=== PATIENT | female | born 1965 | race African-American/Black ===

== ENCOUNTER 2017-01-03 21:00 | Inpatient (IN) | payer OTHER ==
[~2017-01-03] VITALS: Ht 175.3 cm; Wt 63.5 kg
--- NOTE | 2017-01-03 21:04 | ED PSYCHIATRIC COMPLAINT ---
History of Present Illness General Chief Complaint: Psychiatric Related Complaint Stated Complaint: BIBA FOR [facility] ON [address] Source: patient, EMS, police Exam Limitations: clinical condition Vital Signs & Intake/Output Vital Signs & Intake/Output Vital Signs Date Time Temp Pulse Resp B/P B/P Pulse O2 O2 Flow FiO2 Mean Ox Delivery Rate 01/04 0901 97.6 60 18 151/71 100 Room Air 01/04 0644 98.2 71 16 144/79 100 Room Air 01/04 0309 97.7 77 17 154/85 99 Room Air 01/03 2259 97.5 70 18 161/88 99 Room Air 01/03 2126 100 01/03 2101 97.3 93 18 169/90 100 Room Air Allergies Coded Allergies: morphine (Severe, PT STS NEEDED AN INJECTIONS TO CANCEL THE MORPHINE 01/03/17) shellfish derived (Severe, ANAPHALACTIC SHOCK 01/03/17) latex (Mild, RASH 01/03/17) Reconcile Medications No Known Home Medications Triage Nurses Notes Reviewed? yes Onset: Abrupt Duration: hour(s): (1), constant, continues in ED Timing: single episode today Severity: moderate, severe Associated Symptoms: anxiety, suicidal ideation, aggresive behavior LMP (ages 10-50): post menopausal : No Patient currently breastfeeds: No HPI: 51-year-old female with unknown past medical history brought in by EMS and police after she was found walking [place] the [place] [address] earlier tonight. Police reports that they arrived on scene to find her walking down [address] When they tried to confront her to find out what she was doing she immediately became very hostile yelling and screaming at them. She repeatedly asked them to shoot her and throw her body off the side of the road. Please also reports she was talking in incomprehensible words. [place] police report that patient has been arrested for previously cutting off the [facility] wasn't leaving them in [facility] lots. Patient currently reports that she was out walking for exercise only. She denies any current suicidal ideation, homicidal ideation pain drug use or any associated symptoms. She denies any psych history. Patient is very upset that she has to be in the hospital repeatedly saying nothing is wrong with her. Patient is very hostile during interview. (BHARGAV MAYER PA-C) Past History Medical History Any Pertinent Medical History? see below for history Surgical History Surgical History: none Family History Hx Contributory? No (BHARGAV MAYER PA-C) Review of Systems Review of Systems Constitutional: Reports: no symptoms. EENTM: Reports: no symptoms. Respiratory: Reports: no symptoms. Cardiovascular: Reports: no symptoms. GI: Reports: no symptoms. Genitourinary: Reports: no symptoms. Musculoskeletal: Reports: no symptoms. Skin: Reports: no symptoms. Neurological/Psychological: Reports: see HPI. Hematologic/Endocrine: Reports: no symptoms. Immunologic/Allergic: Reports: no symptoms. All Other Systems: Reviewed and Negative (BHARGAV MAYER PA-C) Physical Exam Physical Exam General Appearance: well developed/nourished, alert, awake, anxious, moderate distress Head: atraumatic, normal appearance Eyes: Bilateral: normal appearance, PERRL, EOMI. Ears, Nose, Throat: normal pharynx, normal ENT inspection, hearing grossly normal Neck: normal inspection, supple, full range of motion Respiratory: normal breath sounds, chest non-tender, no respiratory distress, lungs clear Cardiovascular: regular rate/rhythm, normal peripheral pulses Gastrointestinal: normal bowel sounds, soft, non-tender, no organomegaly Extremities: normal range of motion Neurological/Psychiatric: no motor/sensory deficits, awake, agitated, alert, anxious Appearance/Memory/Insight: appropriate appearance, denies illness, impaired insight Behavoir/Eye Contact/Speech: avoids eye contact, belligerent, uncooperative, increased rate of speech, refused to answer Thoughts/Hallucinations: normal thought pattern, delusions, incoherent, paranoid , persecution Skin: intact, normal color, warm/dry SAD PERSONS Done? patient not suicidal (BHARGAV MAYER PA-C) Progress Differential Diagnosis: dementia, drug intoxication, drug overdose, drug withdrawal, electrolyte abnormality, encephalitis, hypoglycemia, hypothyroidism, IC hem/mass/tumor, meningitis Plan of Care: Orders Procedure Date/time Status Regular Diet 01/04 B Active Admit to inpatient psych 01/04 0936 Active Continuous Observation Monitor 01/04 0731 Active Restraint- Discontinue 01/04 0140 Active Restraint- Behavioral (Order) 01/04 0038 Active Add-on Test (ER Only) 01/03 2258 Active THYROID STIMULATING HORMONE 01/04 2140 Complete FREE T4 01/04 2140 Complete Continuous Observation Monitor 01/03 2121 Active URINE 01/03 2121 Complete URINE DRUG SCREEN FOR ER ONLY 01/03 2121 Complete URINALYSIS 01/03 2121 Complete ETHANOL 01/03 2121 Complete COMPREHENSIVE METABOLIC PANEL 01/03 2121 Complete CBC WITHOUT DIFFERENTIAL 01/03 2121 Complete ED CRISIS PSYCH CONSULT 01/03 2121 Active Laboratory Tests 01/03/17 2324: Urine Opiates Screen < 100.00, Methadone Screen < 40, Barbiturate Screen < 60, Ur Phencyclidine Scrn < 6.00, Amphetamines Screen < 100, U Benzodiazepines Scrn < 85, Urine Cocaine Screen < 50, Urine Cannabis Screen < 5.00, Urinalysis MOD H , Urine Color YEL, Urine Clarity HAZY H, Urine pH 7.5, Ur Specific [place] 1.015, Urine Protein 30 H, Urine Ketones NEG, Urine Nitrite NEG, Urine Bilirubin NEG, Urine Urobilinogen 2.0 H, Ur Leukocyte Esterase TRACE H, Ur Microscopic SEDIMENT EXAMINED, Urine WBC 3-5 H, Ur Epithelial Cells FEW, Urine Bacteria MOD H, Urine Mucus FEW, Urine Hemoglobin NEG, Urine Glucose NEG, Urine Test NEGATIVE 01/03/172139: Anion Gap 14, Estimated GFR > 60, BUN/Creatinine Ratio 21.1, Glucose 111 H, Calcium 9.7, Total Bilirubin 1.5 H, AST 25, ALT 24, Alkaline Phosphatase 52, Total Protein 7.9, Albumin 4.7, Globulin 3.2, Albumin/Globulin Ratio 1.5, TSH 4.900 H, Free T4 1.38, CBC w Diff NO MAN DIFF REQ, RBC 4.59, MCV 76.0 L, MCH 24.1 L, RDW 15.4 H, MPV 8.6, Gran % 70.1, Lymphocytes % 23.0, Monocytes % 6.1, Eosinophils % 0.6, Basophils % 0.2, Absolute Granulocytes 3.9, Absolute Lymphocytes 1.3, Absolute Monocytes 0.3, Absolute Eosinophils 0, Absolute Basophils 0, PUBS MCHC 31.6 L, Serum Alcohol < 10.0 Patient requires clearance by crisis. She will have basic blood work and be cleared medically and then will see crisis in the morning. 12:25 AM patient is becoming increasingly agitated and aggressive towards staff. She'll be given 10 of Haldol 2 of Ativan and 50 of Benadryl IM and placed in restraints. Blood work and urinalysis are within normal limits. Alcohol is negative. Urine drug screen is pending. 1 AM: Patient signed out to Dr. Ortiz pending crisis eval in the morning. (BHARGAV MAYER PA-C) Hand-Off Endorsed To: CORINA ORTIZ MD Endorsed Time: 0104 Pending: consult (crisis) (BHARGAV MAYER PA-C) Hand-Off Endorsed To: SPENCER ROWELL MD Endorsed Time: 0700 Pending: consult (CORINA ORTIZ MD) Departure Departure Disposition: STILL A PATIENT Condition: Stable Clinical Impression Primary Impression: Aggressive behavior Departure Forms: Customer Survey General Discharge Information Prescriptions: Current Visit Scripts No Known Home Medications (BHARGAV MAYER PA-C) Departure Comments 01/04/17, 3:35am... pt became increasingly agitated, threatening to staff, aggressive. Pt placed in restraints. Pt given haldol 10mg im and ativan 2mg im. Pt now resting comfortably, out of restraints. Pt to be evaluated by shell this morning. 01/04/17, 7am... pt signed out to dr. rowell this morning. PA/CORK TIPPER Co-Sign Statement Statement: ED Attending supervision documentation- [x] I saw and evaluated the patient. I have also reviewed all the pertinent lab results and diagnostic results. I agree with the findings and the plan of care as documented in the PA's/CORK TIPPER's documentation. [] I have reviewed the ED Record and agree with the PA's/CORK TIPPER's documentation. [] Additions or exceptions (if any) to the PAs/CORK TIPPER's note and plan are summarized below: [] (CORINA ORTIZ MD) Psych Admission Note Psychiatric Admission: I have seen and evaluated PANCHO LEVIN. I have also reviewed all the pertinent lab results and diagnostic results. PANCHO LEVIN will be admitted to our inpatient Psychiatric unit for treatment and care. (SORIN GUSTAFSON,SPENCER Arita)
--- NOTE | 2017-01-03 21:24 | NUR ---
BIBA ON PEER AFTER POLICE FOUND PT WANDERING ON THE SIDE OF THE HIGHWAY SCREAMING. PT TOLD EMS SHE HAD BEEN BODY-SCANNED. ARRIVED ALERT, ABLE TO FOLLOW INSTRUCTIONS, WITH SOME OBVIOUS PARANOID DELUSIONS BUT ALSO RESPONDING APPROPRIATLY TO SOME QUESTIONS, NO PHYSICAL NEURO DEFECITS. REFUSES TO PROVIDE MOST INFO.
--- NOTE | 2017-01-03 21:24 | NUR ---
SECURITY AT BEDSIDE ON ARRIVAL FOR ASSIST. PT WALKED FROM EMS TO ER STRETCHER, WANDED BY SECURITY, COOPERATIVE BUT YELLING "I AM NOT A BOMBER, GO FIND ALL THE BOMBERS, BUT I AM NOT A BOMBER." CHANGED INTO GOWN (REFUSED BLUE SCRUBS "I DON'T WEAR PANTS, I NEED A NIGHTGOWN." REFUSES TO PROVIDE URINE NOW "WHEN I AM READY TO GO I WILL GO." SITTER PRESENT AT BEDSIDE AT ALL TIMES FOR SAFETY. SOPHIE MAYER IN TO EVAL. PD ATTEMPTING TO VERIFY PT'S IDENTITY.
--- NOTE | 2017-01-03 21:25 | NUR ---
1 BELONGINGS BAG IN CLOSET. PD CURRENTLY HAS PT'S KEYS (ONLY VALUABLES PER PD) AND ALSO HAS THE PEER IT IS INCOMPLETE WITHOUT PT'S NAME ETC.
--- NOTE | 2017-01-03 21:46 | NUR ---
LABS DRAWN AND SENT AND PT STS NOT ABLE TO VOID AT PRESENT
[2017-01-03 21:49] LABS: ABSOLUTE BASOPHIL COUNT 0 /CUMM (0.0-0.2); ABSOLUTE EOSINOPHIL COUNT 0 /CUMM (0.0-0.7); ABSOLUTE GRANULOCYTE CT 3.9 /CUMM (1.4-6.5); ABSOLUTE LYMPH COUNT 1.3 /CUMM (1.2-3.4); ABSOLUTE MONOCYTE COUNT 0.3 /CUMM (0.10-0.60); BASOPHIL % 0.2 % (0.0-2.0); EOSINOPHIL % 0.6 % (0-5); GRANULOCYTE % 70.1 % (42.2-75.2); HEMATOCRIT 34.9 % (37-47); MEAN CORPUSCULAR HGB 24.1 PG (27.0-31.0); MEAN CORPUSCULAR HGB CONC 31.6 G/DL (33.0-37.0); MEAN PLATELET VOLUME 8.6 FL (7.4-10.4); PLATELET COUNT 304 /CUMM (130-400); RBC DISTRIBUTION WIDTH 15.4 % (11.5-14.5); RED BLOOD CELL CT 4.59 /CUMM (4.20-5.40); WHITE BLOOD CELL COUNT 5.5 /CUMM (4.8-10.8)
--- NOTE | 2017-01-03 22:20 | NUR ---
PT CONTINUES TO BE CALM AND DENIES ANY COMPLAINTS AT PRESENT. PT AWAITING LAB RESULTS AND PA DISCUSS OF POC. PT STILL CAN NOT PROVIDE URINE
--- NOTE | 2017-01-03 23:02 | NUR ---
REPORT RECIEVED FROM SULLY MAR. PRIMARY CARE ASSUMED AT THIS TIME. PT RE-ASSESSED, CLINICAL STATUS UNCHANGED.
--- NOTE | 2017-01-03 23:03 | NUR ---
[facility] Nurse Note by: DAYANA NAVA I agree with the SYSTEMS SECURITY CONSULTANT findings/evaluation of this patient's condition. Entered by: DAYANA NAVA Date: 01/03/17 Time: 1327
--- NOTE | 2017-01-03 23:12 | NUR ---
SOPHIE MAYER AT BEDSIDE FOR DISCUSSION ON PT POC. PER SOPHIE MAYER PT NEEDS TO GIVE URINE SAMPLE IN ORDER TO MOVE FORWARD. PT STATES SHE STILL IS NOT ABLE TO GIVE URINE SAMPLE, EDUCATED ON IMPORTANCE. WILL TELL STAFF WHEN PT HAS TO URINATE.
--- NOTE | 2017-01-03 23:19 | NUR ---
PT AMBULATING TO BATHROOM FOR URINE SAMPLE, STEADY GAIT NOTED
--- NOTE | 2017-01-04 00:31 | NUR ---
SOPHIE MAYER AT BEDSIDE FOR DISCUSSION ON PT POC. PT MADE AWARE THAT SHE IS TO STAY TO MEET WITH CRISIS IN THE MORNING. PT STARTED SCREAMING "TELL THE POLICE TO GO TO HELL, IM NOT F STAYING HERE TO TALK TO NO WIRE STEWARD. I NEED TO MAKE A F PHONE CALL!!". PT UNABLE TO BE CALMED, THIS RN, BRAULIO RN, , AND SECURITY AT BEDSIDE. PT MEDICATED PER EMAR. PT PLACED IN 4 POINT RESTRAINTS. SIDE RAILS REMAIN UPRIGHT. SITTER REMAINS IN PLACE. WILL CTM.
--- NOTE | 2017-01-04 00:45 | NUR ---
PT STATING SHE NEEDS TO USE THE BATHROOM. PT OFFERED BEDPAN, PT REFUSING USE OF BEDPAN AT THIS TIME.
--- NOTE | 2017-01-04 01:34 | NUR ---
PT REMAINS ASLEEP AT THIS TIME W/RR NOTED. NAD. PT REMAINS IN 4 POINT RESTRAINTS. SITTER REMAINS IN ATTENDANCE. WILL CTM.
--- NOTE | 2017-01-04 01:40 | NUR ---
PT TAKEN OUT OF 4 POINT RESTRAINTS PER . PT WHEELED TO BATHROOM, BACK TO STRETCHER WITH SIDE RAILS UPRIGHT. PT REMAINS CALM AND COOPERATIVE.
--- NOTE | 2017-01-04 03:06 | NUR ---
PT REMAINS ASLEEP AT THIS TIME W/RR NOTED, NAD. SIDE RAILS REMAIN UPRIGHT, SITTER REMAINS IN ATTENDANCE. WILL CTM.
--- NOTE | 2017-01-04 05:28 | NUR ---
PT REMAINS ASLEEP AT THIS TIME W/ RR NOTED. SIDE RAILS UPRIGHT, CALL [place] WITHIN REACH. SITTER REMAINS IN ATTENDANCE. WILL CTM.
--- NOTE | 2017-01-04 06:43 | NUR ---
PT REMAINS ASLEEP WITH AUDIBLE SNORING HEARD. EQUAL AND BILATERAL CHEST RISE AND FALL NOTED, NAD. SITTER REMAINS IN ATTENDANCE.
--- NOTE | 2017-01-04 08:12 | NUR ---
Crisis eval attempted, but pt unable to stay awake. Will try again later.
--- NOTE | 2017-01-04 08:33 | NUR ---
PT ENCOURAGED TO GET UP AND GET CLEANED UP IN THE BATHROOM. PT HAS STEADY GAIT TO THE BATHROOM. NOW EATING BREAKFAST. STATES SHE FEELS OK . PSM AT THE BEDSIDE. WILL CONTINUE TO MONITOR
--- NOTE | 2017-01-04 08:42 | ED PSYCH CRISIS CONSULTATION ---
See Addendum Crisis Consult Basic Assessment Date of Consult: 01/04/17 Responsible Person/Accompanied By: self Insurance Authorization: Insurance #1: Insurance name: DELFINA GAXIOLA Phone number: Policy number: [id number] Group number: Authorization number: ED Provider: Patient's ED Provider: BHARGAV MAYER PA-C Primary Care Physician: Patient's PCP: PATIENT HAS NO PRIMARY CARE DR PCP's Phone Number: Current Psychiatrist: denies Chief Complaint: Psychiatric Related Complaint Patient's Quote: "I always do my exercises on the highway [place] [address] " Present Illness: Pt is a 51yo female brought in on a police paper after she was found walking on the highway screaming. When the police stopped to speak with her she became agitated and was yelling incoherently and non-sensically appearing as if she was trying to put a hex or hoahaoism spell on them. She thought the police were able to scan her body and know her identity and information. She also asked the police to shoot her and dump her body on the side of the of the road. while in the ED, pt was not cooperative and refused to answer most questions. She became agitated and was yelling. when she attempted to leave last night she required restraints and sedation. Upon crisis eval this morning pt was selectively mute refusing to answer most questions. She expressed that "I always do my exercises on the highway [place] [address] Did did not provide any insight into the dangers of this. She denies any hx of any mental health tx. She denies any SI/HI and denies asking the police to shoot her. "I told them that since they were treating me this way they may as well shoot me." Pt asked to call her daughter, but would not disclose who her daughter is or how to contact her. Pt says she lives alone. Pt did not answer any other questions and pretended to fall asleep. Per staff she was up and walking around the room talking to staff when crisis was not in the room. She refused to provide any collateral contact. Crisis called [facility] and she was not in their system. Crisis also called [facility] and was informed that she was psychiatrically hospitalized i 2013 for psychosis, but was not able to share any further information. Was not able to find any info in the Judicial wed site wither although in the Hand P is mentions she was previously arrested 1x. Case reviewed with Dr. Vanessa of Psychiatry and pt will be admitted to [facility] on a [facility]. Patient's Address: [place] [address] Other Phone Number: Who Do You Live With? Patient/Self Family/Informants Interviewed: Carolina at [facility] Allergies - Coded Allergies: morphine (Severe, PT STS NEEDED AN INJECTIONS TO CANCEL THE MORPHINE 01/03/17) shellfish derived (Severe, ANAPHALACTIC SHOCK 01/03/17) latex (Mild, RASH 01/03/17) Current Medications - No Known Home Medications Laboratory Results: Laboratory Tests 01/03/17 2324: Urine Opiates Screen < 100.00, Methadone Screen < 40, Barbiturate Screen < 60, Ur Phencyclidine Scrn < 6.00, Amphetamines Screen < 100, U Benzodiazepines Scrn < 85, Urine Cocaine Screen < 50, Urine Cannabis Screen < 5.00, Urinalysis MOD H , Urine Color YEL, Urine Clarity HAZY H, Urine pH 7.5, Ur Specific [place] 1.015, Urine Protein 30 H, Urine Ketones NEG, Urine Nitrite NEG, Urine Bilirubin NEG, Urine Urobilinogen 2.0 H, Ur Leukocyte Esterase TRACE H, Ur Microscopic SEDIMENT EXAMINED, Urine WBC 3-5 H, Ur Epithelial Cells FEW, Urine Bacteria MOD H, Urine Mucus FEW, Urine Hemoglobin NEG, Urine Glucose NEG, Urine Test NEGATIVE 01/03/17 2140: Anion Gap 14, Estimated GFR > 60, BUN/Creatinine Ratio 21.1, Glucose 111 H, Calcium 9.7, Total Bilirubin 1.5 H, AST 25, ALT 24, Alkaline Phosphatase 52, Total Protein 7.9, Albumin 4.7, Globulin 3.2, Albumin/Globulin Ratio 1.5, TSH 4.900 H, Free T4 1.38, CBC w Diff NO MAN DIFF REQ, RBC 4.59, MCV 76.0 L, MCH 24.1 L, RDW 15.4 H, MPV 8.6, Gran % 70.1, Lymphocytes % 23.0, Monocytes % 6.1, Eosinophils % 0.6, Basophils % 0.2, Absolute Granulocytes 3.9, Absolute Lymphocytes 1.3, Absolute Monocytes 0.3, Absolute Eosinophils 0, Absolute Basophils 0, PUBS MCHC 31.6 L, Serum Alcohol < 10.0 Past History Past Medical History Neurological: NONE EENT: NONE Cardiovascular: NONE Respiratory: NONE Gastrointestinal: NONE Hepatic: NONE Renal: NONE Musculoskeletal: NONE Psychiatric: NONE Endocrine: NONE Blood Disorders: NONE Cancer(s): NONE CUT TO LENGTH OPERATOR/Reproductive: NONE Past Surgical History Surgical History: 1 Psychosocial History Strengths/Capabilities: unable to assess Physical Limitations (Interventions): unable to assess Psychiatric Treatment History Psych Treatment Psychiatric Treatment Yes Inpatient Treatment Yes Outpatient Treatment No Location of Treatment unable to assess Reason for Treatment psychosis Dates of Treatment 2013 Response to Treatment unable to assess Diagnosis by History: psychosis Substance Use/Abuse History Drug Use/Abuse Substances Used/Abused No Substance Abuse Treatment Substance Abuse Treatment Past Substance Abuse [place] No Inpatient Treatment No Outpatient Treatment No Current Mental Status Mental Status Orientation: unable to assess Affect: Variable Speech: Evasive Neuro-vegetative: unable to assess Appearance Appearance- Dress/Hygiene: eyes closed in hospital bed, scarf around head Behaviors Thought Process: Irrational Thought Content: Delusions, Paranoid Insight: Poor SI/HI Risk Assessment Past Suicidal Ideation/Attempts No Current Suicidal Ideation/Att No Past Homicidal Ideation/Att: No Current Homicidal Ideation/Attempts No Degree of Intent: None Gravely Disabled: Lack of Insight, Poor Impulse Control, Poor Judgment Risk Factors: SA/MH hospitalized, poor impulse control, lives alone Lethality Ratin PTSD Checklist PTSD Done? 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
--- NOTE | 2017-01-04 10:12 | IP CRISIS DIAG ASSESS PSYCH ---
See Addendum Diagnostic Assessment Basic Assessment Insurance Authorization: Insurance #1: Insurance name: DELFINA GAXIOLA Phone number: Policy number: [id number] Group number: Authorization number: [id number] Primary Care Physician: Patient's PCP: PATIENT HAS NO PRIMARY CARE DR PCP's Phone Number: Patient's Quote: "I always do my exercises on the [place] [address] " Present Illness: Pt is a 51yo female brought in on a police paper after she was found walking on the highway screaming. When the police stopped to speak with her she became agitated and was yelling incoherently and non-sensically appearing as if she was trying to put a hex or denominational spell on them. She thought the police were able to scan her body and know her identity and information. She also asked the police to shoot her and dump her body on the side of the of the road. while in the ED, pt was not cooperative and refused to answer most questions. She became agitated and was yelling. when she attempted to leave last night she required restraints and sedation. Upon crisis eval this morning pt was selectively mute refusing to answer most questions. She expressed that "I always [place] my exercises on the highway [place] [address] Did did not provide any insight into the dangers of this. She denies any hx of any mental health tx. She denies any SI/HI and denies asking the police to shoot her. "I told them that since they were treating me this way they may as well shoot me." Pt asked to call her daughter, but would not disclose who her daughter is or how to contact her. Pt says she lives alone. Pt did not answer any other questions and pretended to fall asleep. Per staff she was up and walking around the room talking to staff when crisis was not in the room. She refused to provide any collateral contact. Crisis called [facility] and she was not in their system. Crisis also called [facility] and was informed that she was psychiatrically hospitalized i 2013 for psychosis, but was not able to share any further information. Was not able to find any info in the Judicial wed site wither although in the Hand P is mentions she was previously arrested 1x. Case reviewed with Dr. Vanessa of Psychiatry and pt will be admitted to [facility] on a PEC. Patient's Address: [place] [address] Other Phone Number: Who Do You Live With? Patient/Self Primary Language? Barbadian Family/Informants Interviewed: [place] at [facility] Allergies - Coded Allergies: morphine (Severe, PT STS NEEDED AN INJECTIONS TO CANCEL THE MORPHINE 01/03/17) shellfish derived (Severe, ANAPHALACTIC SHOCK 01/03/17) latex (Mild, RASH 01/03/17) Current Medications - No Known Home Medications Lab Results: Laboratory Tests 01/03/17 2324: Urine Opiates Screen < 100.00, Methadone Screen < 40, Barbiturate Screen < 60, Ur Phencyclidine Scrn < 6.00, Amphetamines Screen < 100, U Benzodiazepines Scrn < 85, Urine Cocaine Screen < 50, Urine Cannabis Screen < 5.00, Urinalysis MOD H , Urine Color YEL, Urine Clarity HAZY H, Urine pH 7.5, Ur Specific [place] 1.015, Urine Protein 30 H, Urine Ketones NEG, Urine Nitrite NEG, Urine Bilirubin NEG, Urine Urobilinogen 2.0 H, Ur Leukocyte Esterase TRACE H, Ur Microscopic SEDIMENT EXAMINED, Urine WBC 3-5 H, Ur Epithelial Cells FEW, Urine Bacteria MOD H, Urine Mucus FEW, Urine Hemoglobin NEG, Urine Glucose NEG, Urine Test NEGATIVE 01/03/17 2140: Anion Gap 14, Estimated GFR > 60, BUN/Creatinine Ratio 21.1, Glucose 111 H, Calcium 9.7, Total Bilirubin 1.5 H, AST 25, ALT 24, Alkaline Phosphatase 52, Total Protein 7.9, Albumin 4.7, Globulin 3.2, Albumin/Globulin Ratio 1.5, TSH 4.900 H, Free T4 1.38, CBC w Diff NO MAN DIFF REQ, RBC 4.59, MCV 76.0 L, MCH 24.1 L, RDW 15.4 H, MPV 8.6, Gran % 70.1, Lymphocytes % 23.0, Monocytes % 6.1, Eosinophils % 0.6, Basophils % 0.2, Absolute Granulocytes 3.9, Absolute Lymphocytes 1.3, Absolute Monocytes 0.3, Absolute Eosinophils 0, Absolute Basophils 0, PUBS MCHC 31.6 L, Serum Alcohol < 10.0 Toxicology Screen Completed? Yes Results: negative Past History Past Surgical History Surgical History none Abuse/Trauma History Trauma History/Current Trauma: unable to assess Legal History Current Legal Status: unable to assess Psychosocial History Strengths/Capabilities: unable to assess Physical Limitations (Interventions): unable to assess Psychiatric Treatment History Psych Treatment Psychiatric Treatment Yes Inpatient Treatment Yes Outpatient Treatment No Location of Treatment unable to assess Reason for Treatment psychosis Dates of Treatment 2014 Response to Treatment unable to assess Diagnosis by History: psychosis Risk Factors: SA/MH hospitalized, poor impulse control, lives alone Substance Use/Abuse History Drug Use/Abuse minimum 12mo Hx Substances Used/Abused No Substance Abuse Treatment Substance Abuse Treatment Past Substance Abuse TX No Inpatient Treatment No Outpatient Treatment No Current Mental Status Mental Status Orientation: unable to assess Affect: Variable Speech: Evasive Neuro-vegetative: unable to assess Appearance Appearance- Dress/Hygiene: eyes closed in hospital bed, scarf around head Behaviors Thought Process: Irrational Thought Content: Delusions, Paranoid Insight: Poor SI/HI Risk Assessment - Minimum 6mo History- Past Suicidal Ideation/Attempts No Current Suicidal Ideation/Att No Past Homicidal Ideation/Att: No Current Homicidal Ideation/Attempts No Degree of Intent: None Danger To: Self Gravely Disabled: Lack of Insight, Poor Impulse Control, Poor Judgment Risk Factors: SA/MH hospitalized, poor impulse control, lives alone Lethality Ratin Needs/Init TX Plan/Goals: safety and stabilization of sx, individual group and fasmily therapy, med eval AUDIT-C Questionnaire: AUDIT-C Questionnaire: Response Value ETOH use in the past year Never 0 # drinks typical/day Doesn't Drink 0 6 or > drinks per occasion Never 0 Total 0 DSM5/PS Stressors/Medical Prob Diagnosis' (DSM 5, Stressors, Medical): Unspecified schizophrenia spectrum and other psychotic disorder F29 Current GAF: 15
--- NOTE | 2017-01-04 10:31 | SOCIAL WORKER PROG NOTE PSYCH ---
Social Work Progress Note Progress Note Pt unable to participate in social hx due to psychotic sx.
--- NOTE | 2017-01-04 11:22 | NUR ---
ASSUMED CARE OF THIS PT FROM JOSE MIGUEL JONES. PT ASLEEP AT THIS TIME WITH SITTER AT BEDSIDE. PT'S RESPIRATIONS EQUAL AND UNLABORED.
--- NOTE | 2017-01-04 12:45 | NUR ---
PT WATCHING TV IN ROOM 12 WITH SITTER AT BEDSIDE. PO HALDOL 5MG WAS ORDERED FOR PT, BUT SHE REFUSED MED. ORDER WILL BE CHANGED TO BE IM.
--- NOTE | 2017-01-04 12:54 | Event Note ---
Event Note Event Note: 01/04/17 1245: Dr. Sergio Vanessa called this write to request that the patient be medicated with Haldol 5 mg PO X 1 dose before she comes to [facility]. If the patient is unable or unwilling to take PO, then Haldol 5 mg IM X 1 dose. JOSE MIGUEL Velasco informed, who will request this order from Dr. Stevenson.
--- NOTE | 2017-01-04 14:15 | NUR ---
PT REFUSED PO DOSE OF HALDOL 5MG EVEN AFTER THIS RN AND IT SYSTEMS ANALYST EXPLAINED WHY SHE NEEDED THE MED. ORDER WAS CHANGED BY DR ROWELL TO BE HALDOL 5MG IM. SECUEIRY AT BEDSIDE FOR STANDBY, BUT PT EVENTUALLY TOOK IM MED VOLUNTARILY IN RIGHT DELTOID. SITTER IN ROOM.
--- NOTE | 2017-01-04 14:39 | NUR ---
PT'S DAUGHTER CALLED TO FIND OUT INFORMATION TO WHY PT WAS IN HOSPITAL AND HOW LONG WE WOULD BE HOLDING HER. THIS RN RECEIVED PT'S PERMISSION TO SPEAK WITH DAUGHTER, WHICH PT GRANTED. TELEPHONE CALL TRANSFERRED TO CRISIS SO THAT THEY COULD PROVIDE ADDITIONAL INFORMATION.
--- NOTE | 2017-01-04 15:40 | ED PSY CRISIS COLLATERAL NOTE ---
Collateral Note Collateral Note Family/Inform/[place] Contacts: Pt's Daughter Greer Christianson just called and requesting an update on her Mom. Explained to her that pt had refused to provide her daughters name or contact info and that is why she was not called. Greer informed that her mother is often guarded and will likely not provide any info. she explains that her mother is not in any mental health tx and normally not symptomatic, but 1x yearly she "gets this way and does not make any sense." she usually will be hospitalized. Greer is not sure of her specific dx because she says the hospitals with never share this info. She says her most recent hospitalization was a bout 1 year ago at [facility].
[2017-01-04 16:13] VITALS: BP 131/74
--- NOTE | 2017-01-04 17:17 | NUR ---
PT ARRIVED TO THE UNIT LETHARGIC AND UNCOOPERATIVE, WHEN LOUDLY VERBALLY AROUSED AND WALKED TO ROOM THIS RN ASSESSED FOR SI/HI BY ASKED DIRECTLY AND PT DENIED AND LAID IN BED AND IMMEDIATELY RETURNED TO SLEEP & UNABLE TO FURTHER PARTICIPATE IN ADMISSION INTAKE D/T THE ABOVE AND THIS CHOCOLATIER DID NOT WANT TO PROVOKE OR AGITATE THE PT ANY FURTHER BY CONTINUOUS WAKING UP - GIVEN PREVIOUS BEHAVIOR AND PSYCHOSIS PRESENT IN THE EMERGENCY DEPARTMENT PRIOR TO ARRIVE TO [facility]. GIVEN THE ABOVE INFORMATION AND TO TAKE SAFETY PRECAUTIONS (FALL, PSYCHOSIS/THOUGHT PROCESS, IMPULSIVITY, ETC) 1:1 ORDER VIA ON-CALL PSYCHIATRIST DR. ROBERTS AND DOCTOR INFORMED OF THE ABOVE WELL. THIS CHOCOLATIER WILL ATTEMPT TO GATHER ADDITIONAL INFORMATION WHEN PT IS ALERT AND COOPERATIVE AND IF NOT PASSED IN REPORT TO OTHER RN'S OFF SHIFT TO ASSIST. PT IN NO ACUTE DISTRESS AT THIS TIME AND SITTER MAINTAINED PRECAUTION, VITAL SIGNS STABLE WELL. DR. SMALLS'S OFFICE NOTIFIED FOR H&P TODAY @ 1700.
[2017-01-04 20:00] VITALS: BP 143/73
--- NOTE | 2017-01-05 03:36 | NUR ---
ASSESSED ON ROUNDS PT. JOHNINUES TO SLEEP NO ISSUES.
[2017-01-05 08:29] VITALS: BP 147/92
--- NOTE | 2017-01-05 12:02 | CPS MD/APRN INITIAL ASSE PSYCH ---
Psychiatric Admission Manager Skilled's Note Reviewed: Yes Patient Seen and Examined: Yes Identifying Information: Patient is a 51-year-old AAF brought to [facility] Emergency Department on a PEER on 01/04/17 after being found walking on the highway, agitated and screaming. Chief Complaint: "I don't need a doctor or social security benefits interviewer." Reaction to Hospitalization: angry, resistent History of Present Illness Onset of Illness: unknown Circumstances Leading to Admission: Per PEER, patient was found "walking on highway, became extremely agitated upon approach and yelled non-stop. Kept yelling shoot me. Also spoke in mandaen language and kept putting hexes on me (the customs entry writer of PEER). [employer] also believed we (customs entry writer/others) could scan her and identify all of her information." Per PEC, patient was admitted to inpatient psychiatry (facility unknown) in 2013 for psychosis. While in ED, patient required 4-point locking restraints and emergency IM medications for agitation and attempt to AWOL. Per ED collateral from patient's daughter, Greer Christianson (#[phone]), the patient is not in current mental health treatment. Last hospitalization was approx. 1 year ago at [facility]. She is unclear of specific diagnoses. Stated patient typically presents this way once yearly and is not usually symptomatic. Stated that patient is often guarded and will not likely provide any information. Problem(s) Justifying Need for Admission: agitation, acute psychosis Other HPI: When approached by this customs entry writer today, patient refused to meet. Stated "I don't need a doctor or a social security benefits interviewer. I'm not telling you anything. I'll stay here forever if I have to." When asked if that is what she wants, the patient continued to yell loudy, appeared agitated and was dismissive. Past Psychiatric History Past Diagnosis(es)- if any: Unspecified schizophrenia spectrum and other psychotic disorder Past Precipitating Factors- if any: unknown - Include inpatient and outpatient treatment Treatment History: 1 prior inpatient psychiatric hospitalization about a year ago, per collateral from the patient's daughter. Patient refused to partake in interview. History of Suicide Attempts or Gestures Unknown. Patient refused to partake in interview. Substance Abuse History: Unknown. Patient refused to partake in interview. Allergies: Coded Allergies: morphine (Severe, PT STS NEEDED AN INJECTIONS TO CANCEL THE MORPHINE 01/03/17) shellfish derived (Severe, ANAPHALACTIC SHOCK 01/03/17) latex (Mild, RASH 01/03/17) Home Med List: Unknown - Include any medical condition(s) that may - impact the patient's recovery/remission Past History Medical History Neurological: NONE EENT: NONE Cardiovascular: NONE Respiratory: NONE Gastrointestinal: NONE Hepatic: NONE Renal: NONE Musculoskeletal: NONE Psychiatric: NONE Endocrine: NONE Blood Disorders: NONE Cancer(s): NONE SCRIBING MACHINE OPERATOR/Reproductive: NONE History of MRSA: No History of VRE: No History of CDIFF: No Isolation History: Standard Surgical History Surgical History: none Psychiatric Family/Social Hx Family History Psychiatric Illness: Unknown. Patient refused to partake in interview. Substance Use: Unknown. Patient refused to partake in interview. Suicides: Unknown. Patient refused to partake in interview. Social History Living Situation: Per face sheet, patient has a [place] address. Significant Relationships (family/friends): daughter Education: unknown Vocation/Occupation: unknown Legal: unknown Healthly Behaviors Screening Tobacco Screening Tobacco Use from ED Docu: Refused to answer - If tobacco counseling indicated - the following topics are required. - #1 Recognizing dangerous situations. - #2 Coping Skills. - #3 Basic information about quitting. Status of Tobacco Cessation Counseling: Counseling Refused Cessation Med Status Pt Refused Cessation Meds Alcohol Screening - ETOH screen POS if BAL >=80 or Audit-C>= M4/F3 Audit-C Score from Diag Assess: 0 Blood Alcohol Level: Laboratory Tests 01/03 2140 Toxicology Serum Alcohol (<10 MG/DL) < 10.0 Alcohol Use Screening Results: Neg per Audit C &/or BAL - If ETOH counseling indicated - the following topics are required. - #1 Express concern about the patient's - drinking at unhealthy levels, include informing - of national norms for moderate drinking: - men <= 14 drinks/week, max 4 drinks/occasion - women <= 7 drinks/week, max 3 drinks/occasion - #2 Providing feedback, including linking alcohol to - negative physical effects (liver injury, hypertension) - negative emotional effects (relationship problems and - depression) - negative occupational consequences (reduced work - performance) - #3 Advising the patient to abstain from alcohol or - to drink below national norms for moderate drinking - (as listed above). Status of ETOH Use Counseling: Counseling Refused Metabolic Screening - Screen if on a Neuroleptic Medication - Metabolic screening should include: - Blood Pressure, BMI, Glucose or Hgb A1c, & a - Lipid profile from within the past 365 days. Metabolic Screening () Not Applicable, patient not on a neuroleptic. OR ([X]) Patient on a neuroleptic(s) . Enter below results for Glucose or Hemoglobin A1C, and lipid panel if obtained during the last 365 days. BMI: 20.600 Blood Pressure: 165/97 Laboratory Results (If applicable): Lab Hemoglobin A1c 4.9 % 01/05/17 0636 Lipid panel added on today. Exam and Plan Mental Status Examination Ambulation Status: ambulates freely Appearance: 51 y/o AAF who appears older than stated age. Dressed in hospital garb. Attitude towards examiner: dismissive, uncooperative Psychomotor activity: +agitation Behavior: poor behavioral control Quality of speech: loud, yelling Affect: constricted; intense stare. Mood: angry Suicidal Ideation: would not answer Homicidal Ideation: would not answer Hallucinations: would not answer Paranoid/Delusional Material: possibly towards staff and clinical team; refusing to speak to them. Difficulties with thought organization: unable to assess, patient won't partake in conversation Insight: poor Judgment: poor Orientation: x person and place Cognition: unable to assess at present Memory Function: unable to assess at present Estimate of intellectual functioning: unable to assess at present Assets/Strengths Patient Identified Assets/Strengths: unknown Impression/Plan Impression and Plan: 51-y/o AAF who presented to [facility] on PEER and PEC'ed for inpatient admission in the context of acute agitation and thought disturbance requiring IM medications and restraints for stabilization. Patient unwilling to engage in interview; hx unclear given lack of current information; appeared to have been admitted in the past for psychosis per collateral. Presents angry, dismissive, verbally agitated and uncooperative w/ tx process. Will not engage in risk assessment. Appears internally preoccupied. Etiology for underlying psychosis unclear. Utox (-). Abnormal UA. Will consult boilermaker apprentice on H&P to review. Pt requires inpatient hospitalization for stabilization, monitoring and safety. - Include all active medical diagnosis that require tx DSM 5 Diagnosis(es): Unspecified psychosis R/O Schizoaffective disorder - Initial Tx Plan for Active Psych & Medical Conditions Treatment Plan: -monitor on unit for safety, mood, psychosis. -cont. 1:1 ATC for safety to self/others/risk of awol. -cont. Haldol 10mg and Bendaryl 50mg QHS for psychosis/agitation. -cont. prns of haldol/ativan as ordered. -h&p per boilermaker apprentice team. -obtain EMILIANO for family/tx providers/[facility] records for collateral information. -arrange family mtg FIONA w/ pt permission. -once symptoms are psychiatrically stable, refer to appropriate level of care to outpatient tx. - Factors that would help patient function - in a less restrictive setting. Factors: mood stabilization stabilization of psychosis referral to outpatient tx medication adherence
--- NOTE | 2017-01-05 12:02 | SOCIAL WORKER PROG NOTE PSYCH ---
Social Work Progress Note Progress Note Rosario is on a one to one today. She was sitting in the community, I along with Katherine Gong APRN and I went to introduce ourselves. She stated she had no need for a school social worker in an angry irritated tone. Katherine attempted to tell her it was our job to check in with her daily. She stated she was not going to talk to anyone. Katherine told her that would cause her to be here for a longer time. She said "Well, I'm going to be here forever then." She then told her she would get her money and get paid. Due to her increased agitation at that point we ended the conversation.
[2017-01-05 12:37] VITALS: BP 165/97
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
[2017-01-05 15:48] VITALS: BP 130/71
--- NOTE | 2017-01-05 18:20 | History & Physical ---
General Information and HPI MD Statement: I have seen and personally examined PANCHO LEVIN and documented this H&P. The patient is a 51 year old F who presented with a patient stated chief complaint of patient brought in to the ED on PEER.. Source of Information: EMS Exam Limitations: unable to give history History of Present Illness: 51 years old female was brought to the emergency room department on [place] after walking on the highway incoherently and she was found walking with a the street , yelling she asked the police to shoot her and through her body off to the side of the road. For all these reasons she was admitted for evaluation and treatment Allergies/Medications Allergies: Coded Allergies: morphine (Severe, PT STS NEEDED AN INJECTIONS TO CANCEL THE MORPHINE 01/03/17) shellfish derived (Severe, ANAPHALACTIC SHOCK 01/03/17) latex (Mild, RASH 01/03/17) Home Med list No Known Home Medications Compliance With Home Meds: UNKNOWN Past History Travel History Traveled to [facility] past 21 day No Medical History Neurological: NONE EENT: NONE Cardiovascular: NONE Respiratory: NONE Gastrointestinal: NONE Hepatic: NONE Renal: NONE Musculoskeletal: NONE Psychiatric: NONE Endocrine: NONE Blood Disorders: NONE Cancer(s): NONE 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 Exam & Diagnostic Data Last 24 Hrs of Vital Signs/I&O Vital Signs Date Time Temp Pulse Resp B/P B/P Pulse O2 O2 Flow FiO2 Mean Ox Delivery Rate 01/05 1548 70 130/71 01/05 1237 56 165/97 01/05 829 98.2 65 147/92 01/04 2000 96.7 50 143/73 Intake & Output 01/05 1600 01/05 0800 01/05 0000 Intake Total Output Total Balance Patient 140 lb Weight Physical Exam General Appearance Alert, not talking, laying in bed Skin No Rashes HEENT PERRLA, EOMI Neck Supple, No JVD Lymphatic Axillary nl, Cervical nl Cardiovascular Regular Rate Lungs Clear to Auscultation, Normal Air Movement Abdomen Soft, No Tenderness Neurological Exam Findings: not tested Cranial Nerves II through XII: Seem intact Extremities No Edema, Normal Pulses Vascular Normal Pulses, Pulses Symmetrical Last 24 Hrs of Labs/Kristian: Laboratory Tests 01/05/17 0636: Hemoglobin A1c 4.9, Direct Bilirubin 0.2, Triglycerides 60, Cholesterol 197, LDL Cholesterol, Calc 121, HDL Cholesterol 64 H, Cholesterol/HDL Ratio 3, Retic Count 1.50 01/03/17 2324: Urine Opiates Screen < 100.00, Methadone Screen < 40, Barbiturate Screen < 60, Ur Phencyclidine Scrn < 6.00, Amphetamines Screen < 100, U Benzodiazepines Scrn < 85, Urine Cocaine Screen < 50, Urine Cannabis Screen < 5.00, Urinalysis MOD H , Urine Color YEL, Urine Clarity HAZY H, Urine pH 7.5, Ur Specific [place] 1.015, Urine Protein 30 H, Urine Ketones NEG, Urine Nitrite NEG, Urine Bilirubin NEG, Urine Urobilinogen 2.0 H, Ur Leukocyte Esterase TRACE H, Ur Microscopic SEDIMENT EXAMINED, Urine WBC 3-5 H, Ur Epithelial Cells FEW, Urine Bacteria MOD H, Urine Mucus FEW, Urine Hemoglobin NEG, Urine Glucose NEG, Urine Test NEGATIVE 01/03/170: Anion Gap 14, Estimated GFR > 60, BUN/Creatinine Ratio 21.1, Glucose 111 H, Calcium 9.7, Iron 43, TIBC 355, Ferritin 30.3, Total Bilirubin 1.5 H, AST 25, ALT 24, Alkaline Phosphatase 52, Total Protein 7.9, Albumin 4.7, Globulin 3.2, Albumin/Globulin Ratio 1.5, Vitamin B12 398, Folate > 20.0 H, TSH 4.900 H, Free T4 1.38, Thyroxine (T4) 9.2, CBC w Diff NO MAN DIFF REQ, RBC 4.59, MCV 76.0 L, MCH 24.1 L, RDW 15.4 H, MPV 8.6, Gran % 70.1, Lymphocytes % 23.0, Monocytes % 6.1, Eosinophils % 0.6, Basophils % 0.2, Absolute Granulocytes 3.9, Absolute Lymphocytes 1.3, Absolute Monocytes 0.3, Absolute Eosinophils 0, Absolute Basophils 0, PUBS MCHC 31.6 L, Serum Alcohol < 10.0 Laboratory Tests 01/05/17 0636: Hemoglobin A1c 4.9, Direct Bilirubin 0.2, Triglycerides 60, Cholesterol 197, LDL Cholesterol, Calc 121, HDL Cholesterol 64 H, Cholesterol/HDL Ratio 3, Retic Count 1.50 Diagnostic Data ITS Data Unobtainable at this time Assessment/Plan As Ranked By This Provider Problem List: 1. Aggressive behavior Miscellaneous Miscellaneous Documentation Attending Case Discussed With: ALEJANDRA GUSTAFSON,LIBAN Gasca Primary Care Physician: PATIENT HAS NO PRIMARY CARE DR Patient sees these Specialists Psychiatry Level of Patient Care: TAMY Castanon Consults Needed: Consulting Specialty: Psychiatry Consulting Physician: Dr. Williamson Reason for Consult: bizarre behavior, aggressive behavior
[2017-01-05 20:05] VITALS: BP 146/80
--- NOTE | 2017-01-05 21:14 | NUR ---
Pt is still on 1-1 to elopement risk mood is stable affect is flat. Pt is compliant and cooperative with the staff. Pt vital signs are stable appetite is good. Will conitnue to monitor the pt overnight.
--- NOTE | 2017-01-06 07:16 | NUR ---
PATIENT SLEPT ALL NIGHT, 1:1 SITTER MONITORING AT ALL TIMES.
[2017-01-06 07:59] VITALS: BP 151/86
--- NOTE | 2017-01-06 11:19 | CP SOUTH PROGRESS NOTE PSYCH ---
Psych (Inpt) Progress Note Progress Note Include the following elements, when applicable: Involvement in the active treatment of the patient with behavioral observations of the patient and the patient's response to the treatment. Review of the ongoing treatment process in the context of the treatment plan. Indication of how multi-disciplinary staff members are carrying out the treatment plan. Plans for future interventions and recommendations for revision of the treatment plan. Liaison with other physicians/providers. Progress Note: Notes reviewed, d/w nursing staff. Attempted to meet with patient this morning. She says "I don't need a psychiatrist!" and refused to acknowledge my presence. LAter in the morning nursing staff attempted to engage her to try and facilitate a meeting with me, which she again refused. Per nursing reports, has been in good behavioral control overnight and this morning. Vitals reviewed - borderline htn. A1c and lipid panel resulted and wnl. MSE: adequately groomed AAF sitting on couch with sitter and other patients. No abnormal movements noted. Entirely uncooperative with attempts to engage in interview however her speech was wnl. Mood "I don't need a psychiatrist" affect was irritable, labile. Unable to assess TP or TC or cognition. I/J absent. A/P: Disorganized and agitated behavior has improved however highly guarded and uncooperative with unit staff. Refused medications. Given our inability to evaluate her mental status it is appropriate to continue her on 1:1 sitter for now.
--- NOTE | 2017-01-06 12:00 | NUR ---
PT REFUSED TO ATTEND ANY GROUPS THIS SHIFT. PT REFUSED TO MEET WITH THE DOCTOR TO ASSESS NEED FOR ONE TO ONE SITTER. WHEN TOLD IF SHE MET WITH THE DOCTOR WE COULD PROBABLY D/C THE SITTER SHE STATED "LET HER SIT THERE ALL DAY AND DO NOTHING AND THE GOVERNMENT WILL PAY FOR IT" SHE DID GET LOUD BUT RESPONDED WELL TO REDIRECTION. PT DENIED SUICIDAL THOUGHTS AT THIS TIME
[2017-01-06 12:06] VITALS: BP 173/78
[2017-01-06 16:20] VITALS: BP 182/99
--- NOTE | 2017-01-06 18:25 | NUR ---
PT IS MOSTLY COOPERATIVE WITH STAFF AND PEERS, AND COMPLIANT WITH UNIT RULES. OFTEN IN [place], THOUGH WITHDRAWN, LIMITED INTERACTION WITH OTHERS. IRRITABLE WITH STAFF, BECOMING UPSET AT TIME AND YELLING. MOOD IS NOT STABLE, AFFECT IS FLAT/CONSTRICTED, COMMUNICATION IS LOUD AND PRESSURED AT TIMES. APPETITE IS NORMAL. PT DENIES SI AT THIS TIME.
[2017-01-06 19:47] VITALS: BP 183/92
[2017-01-07 00:47] VITALS: BP 157/91
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
[2017-01-07 07:44] VITALS: BP 148/84
[2017-01-07 12:04] VITALS: BP 154/95
--- NOTE | 2017-01-07 12:55 | CP SOUTH PROGRESS NOTE PSYCH ---
Psych (Inpt) Progress Note Progress Note Include the following elements, when applicable: Involvement in the active treatment of the patient with behavioral observations of the patient and the patient's response to the treatment. Review of the ongoing treatment process in the context of the treatment plan. Indication of how multi-disciplinary staff members are carrying out the treatment plan. Plans for future interventions and recommendations for revision of the treatment plan. Liaison with other physicians/providers. Progress Note: Notes reviewed, d/w nursing staff. Met with patient this morning. Substantially more welcoming than yesterday - allowed me to sit beside her near the television. Answered my pleasantries appropriately, "good morning", "I'm doing alright", however when I asked her how her mood was this morning or to attempt to discuss the events bringing her to the hospital she attested that "I don't want to talk to you anymore!" Per nursing reports, Rosario has not evidenced any agitation or aggressive behavior overnight or this morning. Vitals reviewed - borderline htn. No new labs. MSE: adequately groomed AAF sitting on couch, watching television. No abnormal mvmts noted. No pmotor agitation/retardation. Speech was monotonous. Mood "I don 't want to talk to you". Affect was mildly irritable. TP was impoverished. TC: unable to fully assess. Cognition appeared grossly intact though again unable to fully assess. I/J limited. A/P: Remains guarded and unwilling to engage in interview. That being said, have made some incremental improvements in willingness to speak. It is unclear to me as to the etiology of her refusal to speak with psychiatric providers. She continues to refuse any medications. She has been in good behavioral control now and does not evidence continued need for 1:1 sitter.
--- NOTE | 2017-01-07 13:39 | NUR ---
Patient is A&O X 3, present in the community mostly at the lounge watching TV. Patient is very uncompliant and cooperative with medication and group therapies, continues to demonstrates lack of insight into her psychiatric behavoir and the reason for her hospitalization. Patient easily engage staff in argument and challenge at very request to comply with the unit rules and activities, Mood is stable with apathetic affect, continues with her disorganized thought and irratonal presentation. Patient denies AH/HV, thought of self-harm and to someone else.
[2017-01-07 16:12] VITALS: BP 136/92
--- NOTE | 2017-01-07 18:45 | NUR ---
PT IS COOPERATIVE WITH OTHERS AND COMPLIANT WITH UNIT RULES. OFTEN SPENDING TIME IN MILIEU, THOUGH SLIGHTLY WITHDRAWN AT TIMES, STAYING MOSTLY IN THE PERIPHERY. OVERY ONCE IN A WHILE PT BECOMES EXTREMELY SOCIAL, LAUGHING AND INTERCATING WITH OTHERS, THOUGH THIS ONLY HAPPEND ON OCCASSION. MOOD IS STABLE, AFFECT APPEARS EUTHYMIC, WITH BRIGHT PERIODS AT TIMES. COMMUNICATION IS ORGANIZED AND APPEARS NORMAL IN ALL RESPECTS, AND APPETITE IS NORMAL. PT DENIES SI AT THIS TIME.
[2017-01-07 19:51] VITALS: BP 139/77
[2017-01-08 07:44] VITALS: BP 148/76
[2017-01-08 11:52] VITALS: BP 157/78
--- NOTE | 2017-01-08 13:03 | NUR ---
PT IS OUT IN THE COMMUNITY INTERACTING WELL WITH STAFF AND PEERS. PT KEEPS MOSTLY TO SELF IN THE LOUNGE. PT IS NOT ATTENDING GROUPS. PT MOOD IS STABLE WTIH A CONSTRICTED AFFECT. PT HAS HAD NO BEHAVIORAL PROBLEMS. PT DENIES SI THOGUHTS.
--- NOTE | 2017-01-08 14:02 | SOCIAL WORKER TX PLAN PSYCH ---
Treatment Plan - Please Document: - Evidence that there is ongoing collaboration between - the patient and the interdisciplinary team, - including the patient's active participation and - responsibility for engaging in the treatment regimen, - and that the treatment plan is individualized and - relevant to the patient's conditions. - Treatment plan should reflect documentation indicating - that all active therapeutic efforts are included. 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 Physical Limitations (Interventions): None Patient Identified Trmt Goals: No identified goal Discharge Plan: patient will be offered a walk in appt. at [facility]Note 3[facility] in [place] for mental health services Problem/Goals #1 Problem #1: psychosis Goal (Short Term): patient will be able to tolerate a 5-10 minute discussion with staff Goal (Fci): patient will not exhibit unsafe behaviors that will cause danger to herself or others. Interventions: patient will be offered medication management with the SPARE PERSON, groups on symptom management, coping skills, relaxation group, goals group, spirituality, art therapy. Measurement Technician will engage and access behavior/ symptoms daily. Assist in planning aftercare. 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
--- NOTE | 2017-01-08 14:02 | SOCIAL WORKER PROG NOTE PSYCH ---
Social Work Progress Note Progress Note Rosario responded and said lore when I said lore to her this morning. She has been sitting for most of the day in the chair in the common area. I approached her this afternoon and tried to engage in some conversation. She was okay with small talk about doing crossword. She stated she won't go to group here. I asked if she had visitors over the weekend? She said no. Asked if there is anyone that she would like to have involved? She said "no, I have no one." Asked if she lived alone? She was very guarded about answering and wondered why I was asking that. I told her that I was wondering if someone may be worried about her? She said she lived alone. I then started talking about how Katherinealejandra Gong APRN would like to see her today. She asked why and said she did not need to talk to a psychiatrist and that the "only reason I'm here is because I was doing exercises on the highway." She was starting to get agitated and kept insisting she was only here due to excercise. I told her that I'd like to help her figure out a plan so she can leave. She only got more agitated and then started talking about how she found our after 20 years that she has insurance and that's the only reason we are keeping her here, so we can keep "collecting our money from the state." At that point I got up, as the patient's behavior was more agitated.
--- NOTE | 2017-01-08 16:35 | CP SOUTH PROGRESS NOTE PSYCH ---
Psych (Inpt) Progress Note Progress Note Include the following elements, when applicable: Involvement in the active treatment of the patient with behavioral observations of the patient and the patient's response to the treatment. Review of the ongoing treatment process in the context of the treatment plan. Indication of how multi-disciplinary staff members are carrying out the treatment plan. Plans for future interventions and recommendations for revision of the treatment plan. Liaison with other physicians/providers. Progress Note: I discussed this patient's progress to date, current mental status, treatment process in the context of the treatment plan, and discharge planning with staff/ team in the daily morning inpatient team meeting. I also met with the patient myself in individual session. Current Medications Sig/Carly Start time Last Medication Dose Route Stop Time Status Admin Diphenhydramine HCl 50 MG 01/04 220 AC PO Diphenhydramine HCl 25 MG Q4H PRN 01/04 1515 AC PO Haloperidol 10 MG 01/04 2200 AC PO Haloperidol 5 MG Q4H PRN 01/04 1515 AC PO Lorazepam 1 MG Q4H PRN 01/04 1630 AC PO Vital Signs Date Time Temp Pulse Resp B/P B/P Pulse O2 O2 Flow FiO2 Mean Ox Delivery Rate 01/08 1152 68 157/78 01/08 0744 97.4 56 148/76 01/07 1951 98.1 62 139/77 A: Chart, progress notes, labs, vital signs and medication list were reviewed. Patient consistently refusing scheduled Haldol and Benadryl. Borderline HTN. HR wnl. No new lab results today. Reviewed patient's progress to date w/ nursing staff. They described the patient as out in the milieu in [facility], watching television for the duration of the shift. Guarded. Becomes verbally agitated on staff encounter; no physical agitation; resistent to engaging to conversation. I attempted to speak with patient in the milieu at 4:15PM this evening, together with Suri Baugh RN. Patient dressed in hospital garb and cloth cap. Initially, patient was calm and allowed me to sit across from her near the television. I introduced myself. Asked if she had any questions regarding her stay on unit. She asked when she would be discharged then stated she is "fine." I informed her that I would like to learn more about the circumstances leading to her hospital admission. I also asked if there are any family or friends she would like involved in her inpatient care. Patient became irate. Showed low frustration tolerance. Began shouting, "I was doing my exercises." Patient went on to yell, "I don't need to talk to you, leave me alone. I'm the person involved in my discharge, I don't have anyone." I attempted to inform her of the probable cause process since she is on a PEC and requesting for discharge given her impaired ability to understand purpose of inpatient treatment/process. Patient continued to yell and scream profanities at me. At this point, interview was terminated. Patient briefly continued to shout profanities following the end of conversation. Patient was eventually able to verbally deescalate by herself. She did not evidence any physically aggressive behavior. IMPRESSION: Patient guarded and largely uncooperative on interview. + psychomotor agitation. Speech initially normal in rate, tone and volume; became loud upon being asked what led to her hospitalization. Mood angry. Affect labile. Would not engage in any questions to assess her quality of sleep, appetite, energy level; or to determine if she is endorsing AH or VH. No evidence that she is responding to internal stimuli. Denied SI and HI, "(yelling) No, no, why do you ask me that?" Thought process remains impoverished. Unable to fully assess thought content. Insight/judgement poor to limited surrounding present symptoms and circumstances. Patient making slow progress, compared to my initial encounter with her last Sunday when she could not tolerate any verbal interaction with clinical staff/ providers while on 1:1 observation. She is now off 1:1 observation, is maintaining safety to self/others and no longer evidenced to be a flight risk. She continues to require inpatient hopsitalization for further monitoring of clinical symptoms, safety and stabilization. DIAGNOSES: Unspecified psychosis R/O Schizoaffective disorder P: -Cont. to offer scheduled Haldol 10mg po QHS and Benadryl 50mg po QHS for continued thought disturbance/agitation. Cont. to offer prns for agitation/ psychosis. -Cont. making attempts to engage patient and build rapport. -Cont. to educate patient on probable cause process given her request for discharge and present status on PEC.
--- NOTE | 2017-01-08 17:01 | NUR ---
GLORIA COHEN APRN & THIS RN SUBTLY & CASUALLY APPROACHED PATIENT IN AN INFORMAL, NONCONFRONTATIONAL MANNER IN THE LOUGE TO TEODORO MOOD/INSIGHT/MENTAL STATUS/JUDGEMENT/GOALS, BASICALY ANY FURTHER INFORMATION BESIDES ON A SUPERFICIAL LEVEL AND IT UNFORTUNATELY ESCALATED UNPROVOKED RATHER QUICKLY. WHEN ASKED HOW THE PT WAS SLEEPING, THE RESPONSE WAS GUARDED, LOUD, INTENSE AND DEFENSIVE VIA QUESTIONS WHY QUESTIONS LIKE THAT WERE EVEN BEING ASKED. THE PROVIDER AND THIS PSYCHIATRIST ATTEMPTED TO NAVIGATE AND THERAPUETICALLY INQUIRE MORE HOW STAFF COULD HELP THE PATIENT WITH DISCHARGE DISPO AND THE RESPONSE WAS GROSSLY DISPROPORTIONATE TO THE CONVERSATION, AGGRESSIVE, DISRESPECTFUL AND VERBALLY ABUSIVE ALONG WITH BEING DISRUPTIVE TO THE LOUNGE/PEERS. SEVERAL TIMES PT WAS CALMLY ASKED TO LOWER VOICE AND TO TRY TO COMMUNICATE THE [facility] TEAM IS ATTEMPTING TO AID AND HELP PATIENT, ALL ENDEAVORS WERE RENDERED INEFFECTIVE THEREFORE BOUNDARIES WERE SET E.G., REACTION WAS NOT CONGRUENT TO THE CONVERSATION BEING HAD AND IRRATIONAL, ATTEMPTS TO REDIRECT AND DE-ESCALATE TO NO AVAIL AND ALMOST APPEARED TO AGITATE PT FURTHER. GLORIA & SARAH RN WALKED AWAY AND AT THAT POINT THE PT CONTINUED TO YELL LOUD DEROGATORY REMARKS AROSS THE UNIT TO THIS PSYCHIATRIST AND SECURITY WAS CALLED TO HELP STAFF SET LIMITS AND INFORM PT ONCE AGAIN WHAT IS/IS NOT ACCEPTABLE BEHAVIOR. THE PATIENT WOULD NOT ADDRESS OR LOOK AT SECURITY AND VERBALLY ACCOSTED THEM WELL, @ THAT POINT THIS PSYCHIATRIST STEPPED IN TO CONCLUDE WITH, MOVING FORWARD IT WOULD BE BENEFICIAL IF THE PATIENT COULD TRY TO PUT MORE EFFORT WITH COMMUNICATING WITH STAFF WE ARE TRYING OUR BEST TO HELP AND HAVE HER BEST INTERESTS IN MIND YET HER COOPERATION WOULD BE VALUED AND APPRECIATED. UNFORTUNATELY, PATIENT DID NOT VERBALIZE UNDERSTANDING AND CONTINUED TO LOOK AWAY AT THE WALL AND THE CONVERSATION BETWEEN ALL PARTIES AT THIS TIME CEASED.
--- NOTE | 2017-01-08 18:20 | NUR ---
PT IS EASILY ANGERED, AND UPSET WITH STAFF. IRRITABLE, YELLING AT STAFF ON OCCASSION. OFTEN IN MILIEU, STAYING IN THE PERIPHERY OFTEN, EVERY ONCE IN A WHILE INTERACTING WITH OTHERS. MOOD IS STABLE TO AN EXTENT, DOES BECOME LABILE AT TIMES. AFFECT IS MOSTLY EUHTMYIC. COMMUNICATION IS ORGANIZED AND APPEARS NORMAL IN ALL RESPECTS. APPETITE IS NORMAL. PT DENIES SI AT THIS TIME.
[2017-01-08 19:52] VITALS: BP 160/82
[2017-01-09 07:33] VITALS: BP 146/84
[2017-01-09 12:05] VITALS: BP 152/79
--- NOTE | 2017-01-09 12:47 | NUR ---
PT IS STABLE AT THE MOMENT WITH FLAT AFFECT. PT SITS IN THE LOUNGE ONLY LEAVING TO GO TO THE BATHROOM, VITALS, AND TO EAT BREAKFAST/LUNCH. PT DOES NOT ENGAGE WITH PEERS/STAFF AT ALL AND IS EASILY AGITATED WHEN ASKED ABOUT ANY QUESTIONS CONCERNING HER MENTAL HEALHTH. PT DID NOT ATTEND ANY GROUPS THIS AM. VS ARE STABLE AND DENIES ANY SI/HI TO THIS MHW.
--- NOTE | 2017-01-09 15:02 | CP SOUTH PROGRESS NOTE PSYCH ---
Psych (Inpt) Progress Note Progress Note Include the following elements, when applicable: Involvement in the active treatment of the patient with behavioral observations of the patient and the patient's response to the treatment. Review of the ongoing treatment process in the context of the treatment plan. Indication of how multi-disciplinary staff members are carrying out the treatment plan. Plans for future interventions and recommendations for revision of the treatment plan. Liaison with other physicians/providers. Progress Note: PSYCHIATRIST (COVERING) NOTE, 01/09/2017: I discussed this patient's interval progress since last ITTM with unit charge nurse and read the progress note of 01/08/2017 written by Katherine Werner APRN. Patient has consistently refused to accept medication (specifically Haldol) since admission, maintained a sullen, quiet, withdrawn attitude and consistently refused to engage in interview/discussion with any clinician here. Patient did enter my office today as far as the doorway but stopped and stood there. Patient presented as a well spoken attractive woman appearing well kempt and younger than her chronological age. She inquired if I were a psychiatrist and then was reluctant to speak further, telling me she didn't need to speak with me because she is "not mentally ill," and there was no reason for the police to have brought her here to the E.D. or for her admission. I asked if she would explain to me how this "mistake" came about. Patient told me she was "exercising" next/near to the highway ([address]), insisting that she was not IN the road as that would be foolish and dangerous. When I inquired as to how it was that she was excercising so far from [place] (my only known address for her) she corrected me, stating that she is living in [facility], and her home "is not more than [address]," which would make her presence near ( but not on) [address] seem somewhat less unfathamable. Patient is in no acute distress, expressed no illogical or delusional ideation in my presence today.
[2017-01-09 15:48] VITALS: BP 147/78
--- NOTE | 2017-01-09 18:08 | NUR ---
PT HAS BEEN SITTING IN LOUNGE FOR THE WHOLE SHIFT ONLY GETTING UP FOR VITALS AND MEALS. PT INTERACTS WELL WITH OTHERS WHEN THEY SIT IN THE LOUNGE WITH HER. PT IS NOT ATTENDING GROUPS. PT MOOD IS STABLE FOR NOW WITH A COSNTRICTED AFFECT. PT DENIES SI THOUGHTS.
[2017-01-09 19:44] VITALS: BP 152/74
--- NOTE | 2017-01-10 06:34 | NUR ---
PATIENT SLEPT ALL NIGHT, UP TO BATHROOM ONCE.
[2017-01-10 08:06] VITALS: BP 142/76
--- NOTE | 2017-01-10 11:55 | NUR ---
PT IN THE MILIEU TODAY. SHE CONTINUES TO REFUSE TO PARTICIPATE IN ANY GROUPS. SHE IS EATING HER MEALS WITH PEERS BUT MINIMALLY INTERACTING. SHE IS IRRITABLE AT TIMES, AND GUARDED. PT DENIES THOUGHTS OF HURTING HERSELF WHEN ASKED.
--- NOTE | 2017-01-10 12:01 | SOCIAL WORKER PROG NOTE PSYCH ---
Social Work Progress Note Progress Note Approached Rosario in the kitchen who was sitting alone eating ice cream with crackers mixed in. I told her I would like to help her get home. She got agitated and started yelling about how I didn't need to help her, she has a home to go to. I reiterated that we need to speak with someone in order to assist with planning a safe discharge. She continued to yell at me. I tried redirecting her in a calm voice that she did not need to yell at me as I was just talking to her. She continued yelling at me. At that point I walked away stating she cannot yell at me.
[2017-01-10 12:28] VITALS: BP 148/73
--- NOTE | 2017-01-10 14:44 | CP SOUTH PROGRESS NOTE PSYCH ---
Psych (Inpt) Progress Note Progress Note Include the following elements, when applicable: Involvement in the active treatment of the patient with behavioral observations of the patient and the patient's response to the treatment. Review of the ongoing treatment process in the context of the treatment plan. Indication of how multi-disciplinary staff members are carrying out the treatment plan. Plans for future interventions and recommendations for revision of the treatment plan. Liaison with other physicians/providers. Progress Note: Medication list reviewed. Case and treatment plan discussed in team meeting. Described as irritable. Refusing to attend groups. Refusing medication. Told Dr. Vanessa she is not mentally ill. Patient seen at 1:08 pm. She was sitting in the lounge and got up to meet with me in the office. When I introduced myself and my role, she stated "I don't see psych... I just want to go home." Patient is guarded. Affect is currently calm and blunted. No further interview was possible. IMPRESSION: Slow progress. Continue present treatment plan.
[2017-01-10 16:14] VITALS: BP 148/90
--- NOTE | 2017-01-10 18:06 | NUR ---
PT IS COOPERATIVE WITH STAFF AND PEERS, AND COMPLIANT WITH UNIT RULES. OFTEN IN MILIEU, LIMITED INTERACTION WITH OTHERS. AT TIMES PT EXHIBITS LABILITY, LAUGHING LOUDLY, BECOMING EXTREMELY TALKATIVE FOR SHORT PERIODS OF TIME. MOOD IS MOSTLY STABLE, AFFECT APPEARS EUTHYMIC MOST OF THE TIME, WITH BRIGHT PERIODS, COMMUNICATION IS ORGANIZED AND APPEARS NORMAL IN ALL RESPECTS, AND APPETITE IS NORMAL. PT DENIES SI AT THIS TIME.
[2017-01-10 19:50] VITALS: BP 142/92
[2017-01-11 07:56] VITALS: BP 145/85
[2017-01-11 12:18] VITALS: BP 154/86
--- NOTE | 2017-01-11 14:15 | NUR ---
PT HAD SEVERAL LOUD OUTBURSTS TODAY R/T HAVING HER CLOTHES BACK.SECURITY WAS CALLED BUT SHE YELLED LOUL
--- NOTE | 2017-01-11 15:30 | CP SOUTH PROGRESS NOTE PSYCH ---
Psych (Inpt) Progress Note Progress Note Include the following elements, when applicable: Involvement in the active treatment of the patient with behavioral observations of the patient and the patient's response to the treatment. Review of the ongoing treatment process in the context of the treatment plan. Indication of how multi-disciplinary staff members are carrying out the treatment plan. Plans for future interventions and recommendations for revision of the treatment plan. Liaison with other physicians/providers. Progress Note: I discussed this patient's progress to date, current mental status, treatment process in the context of the treatment plan, and discharge planning with staff/ team in the daily morning inpatient team meeting. I also met with the patient myself in individual session. Current Medications Sig/Carly Start time Last Medication Dose Route Stop Time Status Admin Diphenhydramine HCl 50 MG 01/04 2200 AC PO Diphenhydramine HCl 25 MG Q4H PRN 01/04 1515 AC PO Haloperidol 10 MG 01/04 2200 AC PO Haloperidol 5 MG Q4H PRN 01/04 1515 AC PO Lorazepam 1 MG Q4H PRN 01/04 1630 AC PO Vital Signs Date Time Temp Pulse Resp B/P B/P Pulse O2 O2 Flow FiO2 Mean Ox Delivery Rate 01/11 1218 66 154/86 01/11 0756 97.6 58 145/85 07/05 1950 98.0 88 142/92 07/05 1614 64 148/90 A: Chart, progress notes, labs, vital signs and medication list were reviewed. Patient continues to refuse scheduled Haldol and Benadryl. Borderline HTN. HR wnl. No new lab results today. Patient's progress reviewed with nursing staff. They described the patient as somewhat irritable, keeping mostly to self in the unit lounge and in her room. No acts of physical aggression. Eating and completing ADLs independently. Sleeping without issue. Met with patient together w/ Krista Langford LCSW, at 3:20PM, in the patient's room. She was observed kneeling on her bed, looking out her bedroom window. Patient appeared less irritable than in prior encounters. She was nonconfrontational, smiled, and engaged in brief conversation. States she was brought to the hospital for "doing exercises." Continues to deny exercising in the middle of the street. Reiterates that to do that would be dangerous. States that when she doesn't shop she stays home, in [place]. She states that she would like to go home. She refuses to follow-up with outpatient mental health treatment. Continues to refuse medications. States she will take a bus home. Believes she does not have a psychiatric illness. She denies being in any acute distress. She did not express any illogical or delusional ideation during our encounter today. P: -continue monitoring on unit for safety, mood and psychosis. -discharge tomorrow to home and self care. -will provide f/u at [facility].
--- NOTE | 2017-01-11 15:35 | SOCIAL WORKER PROG NOTE PSYCH ---
Social Work Progress Note Progress Note Rosario was in her room this afternoon looking out the window. Katherine Angulokatyakate SERGIO approached her room and let her know we are thinking of discharging her tomorrow. She seemed pleased to hear the news. Asked if she needed assistance with getting home? How would she get there? She stated she would walk or take the bus. Asked if she needed any follow up from here? She appeared irritated with the question and said "no, I stay to myself at home, I only go out to get groceries." Asked if she had any concerns? She said no and thanked us with a smile. Told her we would discharge her late morning.
--- NOTE | 2017-01-11 20:40 | NUR ---
PT IS VISIBLE ON UNIT, SITTING QUIETLTY IN LOUNGE. MINIMAL INTERACTION WITH PEERS BUT IS PLEASANT WITH THEM WHEN SOCIALIZING. IRRITABLE EDGE WITH STAFF BUT IS COOPERATIVE AND COMPLIANT. PT RETREATED TO BED FAIRLY EARLY IN EVENING. REFUSED 1600 AND 2000 VITAL SIGNS. NO COMPLAINTS OR SI REPORTED. PT HAS A STABLE MOOD AND FLAT/IRRITABLE AFFECT.
[2017-01-12 08:15] VITALS: BP 142/76
--- NOTE | 2017-01-12 08:26 | NUR ---
PT [place]ED[place] FOR [place] [facility] [place]. PT DENIES ANY THOUGHTS OS SUICIDE OR SELF HARM AT THIS TIME. SHE REFUSES TO TAKE ANY MEDS AND SHE REFUSES TO ATTEND ANY GROUPS. SHE DENIES THE NEED TO BE IN THE HOSPITAL. EXCEPT FOR A FEW VERBAL OUTBURSTS SHE HAS BEEN CALM AND IN CONTROL OF HER BEHAVIOR. SHE DOES NOT OUTWARDLY DISPLAY ANY PSYCHOTIC S/S AND HE CONVERSATION WITH HER PEERS IS APPROPRIATE. PT IS GIVEN EDUCATION R/T MANAGING HER MOOD AND ON PEVENTING SUICIDE
--- NOTE | 2017-01-12 08:34 | CP SOUTH PROGRESS NOTE PSYCH ---
Psych (Inpt) Progress Note Progress Note Include the following elements, when applicable: Involvement in the active treatment of the patient with behavioral observations of the patient and the patient's response to the treatment. Review of the ongoing treatment process in the context of the treatment plan. Indication of how multi-disciplinary staff members are carrying out the treatment plan. Plans for future interventions and recommendations for revision of the treatment plan. Liaison with other physicians/providers. Progress Note: I discussed this patient's progress to date, current mental status, treatment process in the context of the treatment plan, and discharge planning with staff/ team in the daily morning inpatient team meeting. I also met with the patient myself in individual session. Current Medications Sig/Carly Start time Last Medication Dose Route Stop Time Status Admin Diphenhydramine HCl 50 MG 01/04 220 AC PO Diphenhydramine HCl 25 MG Q4H PRN 01/04 1515 AC PO Haloperidol 10 MG 01/04 220 AC PO Haloperidol 5 MG Q4H PRN 01/04 1515 AC PO Lorazepam 1 MG Q4H PRN 01/04 1630 DC PO Vital Signs Date Time Temp Pulse Resp B/P B/P Pulse O2 O2 Flow FiO2 Mean Ox Delivery Rate 01/12 0815 98.3 59 142/76 01/11 1218 66 154/86 A: Chart, progress notes, labs, vital signs and medication list were reviewed. Patient continues to refuse scheduled Haldol and Benadryl. Borderline HTN. HR wnl. No new lab results today. Reviewed the patient's progress with nursing staff. They described her as sleeping without issue. Eating and completing ADLs independently. Mood irritable and on edge at times. Verbally aggressive with staff at times. No physical aggression. Met with the patient at 10:15AM in her room. She was noted looking outside of her bedroom window. She presented alert and oriented x 3. She was calm and cooperative on approach. Eye contact appropriate. Remains guarded, minimally engaged in conversation. Mood "good." Affect constricted. She stated that she felt safe and ready for discharge. She denied thoughts to harm herself and others. There was no evidence of her being internally preoccupied. Denied auditory and visual hallucinations. Denied paranoid ideation. Thought process linear, goal-directed to return to her home in [place]. She did not express any illogical or delusional ideation during our encounter today. Prior to discharging from unit, patient became verbally agitated when asked by nursing staff to sign discharge paperwork. Patient left the unit with her belongings and some of discharge paperwork. P: -discharge today to home. -advised to follow up at [facility] for walk-in intake for outpatient tx. -advised that in the event of an emergency to call 911/go to the nearest emergency department. Patient verbalized understanding of instruction.
--- NOTE | 2017-01-12 08:38 | DISCHARGE SUMMARY REPORT-PSYCH ---
Visit Information Visit Dates/Diagnosis' Admission Date: 01/04/17 Discharge Date: 01/12/17 Reason for Admission: Patient was brought to [facility] Emergency Department by ambulance on a PEER on 01/04/17 [place], agitated and screaming. Psy Discharge Primary Diag: Unspecified psychosis Psy Discharge Secondary Diag: R/O Schizoaffective disorder Hospital Course Significant Lab Findings: Lab BUN 19 mg/dL H 01/03/17 2140 Glucose 111 mg/dL H 01/03/17 2140 HDL Cholesterol 64 mg/dL H 01/05/17 0636 Total Bilirubin 1.5 mg/dL H 01/03/170 Course Complications: None. Consultations: The patient was seen for admission history and physical by nurse receptionist Dr. Terrence Ross. Please see his note for additional information. Allergies: Coded Allergies: morphine (Severe, PT STS NEEDED AN INJECTIONS TO CANCEL THE MORPHINE 01/03/17) shellfish derived (Severe, ANAPHALACTIC SHOCK 01/03/17) latex (Mild, RASH 01/03/17) Hospital Course/TX Response: The patient was monitored on the unit for safety, mood, psychosis, suicidal and homicidal ideation. She refused prescribed haldol and benadryl and all other recommended psychotropic medications for agitation and psychosis. During the hospital course, the patient's mood and affect improved. She continued to exercise spontaneous episodes of verbal agitation, but would ultimately settle on her own when given space. She did not exhibit any physical agitation on the unit or make any verbal threats. She consistently denied suicidal and homicidal ideation, auditory and visual hallucinations, and paranoia. There was no evidence of delusional thought content. I met with the patient at 10:15AM in her room, on 01/12/17, the date of discharge. She was noted looking outside of her bedroom window. She presented alert and oriented x 3. She was calm and cooperative on approach. Eye contact appropriate. Remained guarded, minimally engaged in conversation. Mood "good." Affect constricted. She stated that she felt safe and ready for discharge. She denied thoughts to harm herself and others. There was no evidence of her being internally preoccupied. Denied auditory and visual hallucinations. Denied paranoid ideation. Thought process linear, goal-directed to return to her home in [place]. She did not express any illogical or delusional ideation during our encounter today. She continued to refuse medications. Prior to discharging from unit, patient became verbally agitated when asked by nursing staff to sign discharge paperwork. Patient refused to sign more than one piece of paper, then left the unit with her belongings and some of discharge paperwork. Discharge HBIPS - Tobacco Use Treatment Offered Post DC Medications Offered: Refused Tob Medication Tx Post DC Tobacco Treatment Plan: Refused Tobacco Tx Pgm - EtOH/Drug Use D/O Treatment Offered Post DC Medications Offered: NA-No EtOH/Drug Use D/O Post DC EtOH/SubAbuse TX Plan: NA-No EtOH/Drug Use D/O Metabolic Screening - Screen if on a Neuroleptic Medication - Metabolic screening should include: - Blood Pressure, BMI, Glucose or Hgb A1c, & a - Lipid profile from within the past 365 days. Metabolic Screening ([X]) Not Applicable, patient not on a neuroleptic. OR () Patient on a neuroleptic(s) . Enter below results for Glucose or Hemoglobin A1C, and lipid panel if obtained during the last 365 days. BMI: 20.600 Blood Pressure: 142/76 Laboratory Results (If applicable): Discharge Instructions General Discharge Information Discharge Medications: Discharge Medications- (Dose, route, freq, indication): None. The patient refused medications during the hospital course. Multiple Neuroleptics: ([X]) Not Applicable OR Document below three failed attempts at monotherapy, or a plan to taper to monotherapy, or augmentation of Clozapine. () Patient's Diet: Regular. Patient's Activity: No restrictions. DC Disposition: To return to her home in [place], [place]. Recommendations: The patient was advised to follow-up with referral at [facility] for continued psychiatric treatment. She was advised that in the event of an emergency, to call 911/211/go to the nearest emergency deparetment. The patient verbalized understanding of instructions. Referred To: Post Discharge Referrals Provider Referral Referred To: [[facility]] Notes: [address] [place] [address] Walk In evaluations: Sunday, , Sun, 9:30-12 and Tues and Thurs 2-4pm (T)[phone] Copies To: *
--- NOTE | 2017-01-12 08:49 | Patient Discharge Instructions ---
Psych Discharge Inst General Discharge Information Reason for Admission: Patient was brought to [facility] Emergency Department by ambulance on a PEER on 01/04/17 [place], agitated and screaming. Psy Discharge Primary Diag+ Unspecified psychosis Psy Discharge Secondary Diag+ R/O Schizoaffective disorder Summary Tests/Major Procedures n/a Studies Pending at DC: n/a Patient Instructions Contact Information Your Psychiatrist on [facility] was ALEJANDRA GUSTAFSON,LIBAN Gasca/ GLORIA COHEN APRN. * If you are experiencing an emergency related to this hospitalization, please call [phone] to contact the treating psychiatrist or the psychiatrist-on- call. * To Request a copy of your medical records, please contact the Medical Records Department at [phone]. * To request results of studies pending at the time of discharge, please call [phone]. * Continue your Medications until directed to stop by your Healthcare provider. General Medication Information The patient refused medications. Advance Directives Does the Patient have Medical Advance Directives No/Refused further info Does Pt have Psychiatric Advance Directives? No/Refused further info Does Patient have a Designated Surrogate Decision Maker: No Information About Psychiatric Advance Directives Provided? Refused Discharge Plan Post Hospital Treatment Plan: The patient was advsed to follow up with the following referral: [facility] [place] [address] Walk In evaluations: Sunday, , Sun, 9:30-12 and Tues and Thurs 2-4pm [phone] She was further advised that in the event of an emergency, to call 911/go to the nearest emergency department.
--- NOTE | 2017-01-12 11:01 | SOCIAL WORKER PROG NOTE PSYCH ---
Social Work Progress Note Progress Note Rosario was ready aniticipating discharge today. Asked if she was walking or taking the bus? She said either was fine, but she didn't have any money for bus fare. This social media developer provided her with bus fare due to it raining and she lives in [place]. She became agitated minutes before walking out the door, due to nursing asking her to sign a couple of discharge forms. Apparently she only wanted to sign one. She got very agitated yelling about how she was strapped down like an animal in restraints. Any redirection to calm her down and talk about how that was not done on our unit, was futile. She left angry. She was give a referral to [facility] in [place]. They have walk-in evaluations. I believe she left most of her discharge information on the desk and chose not to take it.
== END 2017-01-12 10:50 | DRG 751 ==
LOC: ERH 21:00 → CP SOUTH 01-04 09:36 → ERHI 01-04 09:36 → ENTRNSPT 01-04 15:51 → CP SOUTH 01-04 16:17 → CMPTRNSPT 01-04 17:28 → CP SOUTH 01-10 15:16
PROVIDERS: Physician Assistant Medical; ADMIT Psychiatry & Neurology Addiction Medicine
DX: F29 Unspecified psychosis not due to a substance or known physiological condition (principal); F25.9 Schizoaffective disorder, unspecified
CPT/HCPCS: 36415; 80307; 81001; 81025; 96372; 99291; G0480; J1200; J1630